=== PATIENT | female | born 1950 | race Caucasian/White ===

== ENCOUNTER 2024-03-04 08:08 | Outpatient (CLI) | payer MEDICARE | END 2024-03-04 08:09 | disposition home or self-care (01) | LOC: CSHSLEEP 08:08 | PROVIDERS: ATTEND Internal Medicine | DX: G47.33 Obstructive sleep apnea (adult) (pediatric) (principal); R09.02 Hypoxemia | CPT/HCPCS: 95800 ==

== ENCOUNTER 2024-03-10 09:01 | Outpatient (CLI) | payer MEDICARE ==
[2024-03-10] MEDS ORDERED: Levalbuterol HCl 0.63 MG/3 ML NEB NEB SCH (09:45)
== END 2024-03-10 09:02 | disposition home or self-care (01) ==
LOC: CSHCP 09:01
PROVIDERS: ATTEND Internal Medicine
DX: J44.9 Chronic obstructive pulmonary disease, unspecified (principal)
CPT/HCPCS: 94060; 94618; 94726; 94729; J7614

== ENCOUNTER 2024-06-28 08:05 | Outpatient (CLI) | payer MEDICARE | END 2024-06-28 08:06 | disposition home or self-care (01) | LOC: CSHSLEEP 08:05 | PROVIDERS: ATTEND Internal Medicine | DX: G47.33 Obstructive sleep apnea (adult) (pediatric) (principal); R53.83 Other fatigue; R06.83 Snoring; R09.02 Hypoxemia | CPT/HCPCS: 95811 ==